=== PATIENT | female | born 1990 | race Two or more races ===

== ENCOUNTER 2019-12-14 18:44 | Emergency (ER) | payer MEDICAID ==
[~2019-12-14] VITALS: Ht 167.6 cm; Wt 68.0 kg
--- NOTE | 2019-12-14 18:55 | Emergency Room Report ---
History of Present Illness General Chief Complaint: Behavioral Complaint Source: Patient (Darwin Garcia MD) Present Illness HPI 29-year-old female history of bipolar disease, possible schizophrenia is hearing voices was found on the street with her friend wandering around, drink alcohol prior to coming patient states she is hearing voices no acute suicidal or homicidal ideations she states the voices are abusing her severity is severe , constant symptoms have been occurring for the past couple days patient presents for evaluation (Darwin Garcia MD) Allergies: Coded Allergies: UNABLE TO ASSESS (Unverified , 12/14/19) Patient History Past Medical History: see triage record Last Menstrual Period: Unknown Now: No - Unknown Reviewed Nursing Documentation: PMH: Agreed; PSxH: Agreed (Dariwn Garcia MD) Nursing Documentation-PMH Past Medical History: No Stated History (Darwin Garcia MD) Review of Systems All Other Systems: negative except mentioned in HPI (Darwin Garcia MD) Physical Exam Vital Signs Date Time Temp Pulse Resp B/P (MAP) Pulse Ox O2 Delivery O2 Flow Rate FiO2 12/14/19 18:36 130 25 113/79 (90) 99 Room Air Sp02 EP Interpretation: reviewed, normal General Appearance: alert, mild distress Head: normocephalic, atraumatic Eyes: bilateral eye PERRL, bilateral eye EOMI ENT: uvula midline, moist mucus membranes Neck: supple, thyroid normal, supple/symm/no masses Respiratory: lungs clear, no respiratory distress, no retraction, no accessory muscle use Cardiovascular #1: normal peripheral pulses, no edema, no gallop, no murmur, tachycardia Gastrointestinal: non tender, soft, no guarding, no rebound Musculoskeletal: normal inspection Neurologic: alert, oriented x3 Psychiatric: no suicidal/homicidal ideation, anxious Skin: no rash, warm/dry (Darwin Garcia MD) Medical Decision Making Diagnostic Impression: Primary Impression: Behavioral disorder ER Course 29-year-old female presents with hearing voices possible schizophrenia and bipolar disorder decompensated Patient is medically clear, for admission to psychiatric facility Laboratory Tests Test 12/14/19 19:22 12/14/19 20:05 White Blood Count 9.3 K/UL (4.8-10.8) Red Blood Count 4.73 M/UL (4.20-5.40) Hemoglobin 13.8 G/DL (12.0-16.0) Hematocrit 41.8 % (37.0-47.0) Mean Corpuscular Volume 88 FL (80-99) Mean Corpuscular Hemoglobin 29.2 PG (27.0-31.0) Mean Corpuscular Hemoglobin Concent 33.0 G/DL (32.0-36.0) Red Cell Distribution Width 12.3 % (11.6-14.8) Platelet Count 269 K/UL (150-450) Mean Platelet Volume 7.1 FL (6.5-10.1) Neutrophils (%) (Auto) 57.4 % (45.0-75.0) Lymphocytes (%) (Auto) 34.1 % (20.0-45.0) Monocytes (%) (Auto) 6.6 % (1.0-10.0) Eosinophils (%) (Auto) 0.2 % (0.0-3.0) Basophils (%) (Auto) 1.7 % (0.0-2.0) Sodium Level 147 MMOL/L (136-145) H Potassium Level 3.6 MMOL/L (3.5-5.1) Chloride Level 105 MMOL/L (98-107) Carbon Dioxide Level 25 MMOL/L (21-32) Anion Gap 17 mmol/L (5-15) H Blood Urea Nitrogen 6 mg/dL (7-18) L Creatinine 0.7 MG/DL (0.55-1.30) Estimate Glomerular Filtration Rate > 60 mL/min (>60) Glucose Level 86 MG/DL (74-106) Calcium Level 9.2 MG/DL (8.5-10.1) Total Bilirubin 1.0 MG/DL (0.2-1.0) Aspartate Amino Transferase (AST) 55 U/L (15-37) H Alanine Aminotransferase (ALT) 43 U/L (12-78) Alkaline Phosphatase 64 U/L (46-116) Total Protein 8.3 G/DL (6.4-8.2) H Albumin 4.3 G/DL (3.4-5.0) Globulin 4.0 g/dL Albumin/Globulin Ratio 1.1 (1.0-2.7) Salicylates Level < 0.2 ug/mL (2.8-20) L Acetaminophen Level < 2 MCG/ML (10-30) L Serum Alcohol 237 mg/dL Urine HCG, Qualitative Negative (NEGATIVE) Urine Opiates Screen Negative (NEGATIVE) Urine Barbiturates Screen Negative (NEGATIVE) Phencyclidine (PCP) Screen Negative (NEGATIVE) Urine Amphetamines Screen Negative (NEGATIVE) Urine Benzodiazepines Screen Negative (NEGATIVE) Urine Cocaine Screen Negative (NEGATIVE) Urine Marijuana (THC) Screen Negative (NEGATIVE) (Darwin Garcia MD) Laboratory Tests Test 12/14/19 19:22 12/14/19 20:05 12/15/19 00:30 12/15/19 02:50 White Blood Count 9.3 K/UL (4.8-10.8) Red Blood Count 4.73 M/UL (4.20-5.40) Hemoglobin 13.8 G/DL (12.0-16.0) Hematocrit 41.8 % (37.0-47.0) Mean Corpuscular Volume 88 FL (80-99) Mean Corpuscular Hemoglobin 29.2 PG (27.0-31.0) Mean Corpuscular Hemoglobin Concent 33.0 G/DL (32.0-36.0) Red Cell Distribution Width 12.3 % (11.6-14.8) Platelet Count 269 K/UL (150-450) Mean Platelet Volume 7.1 FL (6.5-10.1) Neutrophils (%) (Auto) 57.4 % (45.0-75.0) Lymphocytes (%) (Auto) 34.1 % (20.0-45.0) Monocytes (%) (Auto) 6.6 % (1.0-10.0) Eosinophils (%) (Auto) 0.2 % (0.0-3.0) Basophils (%) (Auto) 1.7 % (0.0-2.0) Sodium Level 147 MMOL/L (136-145) H Potassium Level 3.6 MMOL/L (3.5-5.1) Chloride Level 105 MMOL/L (98-107) Carbon Dioxide Level 25 MMOL/L (21-32) Anion Gap 17 mmol/L (5-15) H Blood Urea Nitrogen 6 mg/dL (7-18) L Creatinine 0.7 MG/DL (0.55-1.30) Estimate Glomerular Filtration Rate > 60 mL/min (>60) Glucose Level 86 MG/DL (74-106) Calcium Level 9.2 MG/DL (8.5-10.1) Total Bilirubin 1.0 MG/DL (0.2-1.0) Aspartate Amino Transferase (AST) 55 U/L (15-37) H Alanine Aminotransferase (ALT) 43 U/L (12-78) Alkaline Phosphatase 64 U/L (46-116) Total Protein 8.3 G/DL (6.4-8.2) H Albumin 4.3 G/DL (3.4-5.0) Globulin 4.0 g/dL Albumin/Globulin Ratio 1.1 (1.0-2.7) Salicylates Level < 0.2 ug/mL (2.8-20) L Acetaminophen Level < 2 MCG/ML (10-30) L Serum Alcohol 237 mg/dL 156 mg/dL 110 mg/dL Urine Color Pale yellow Urine Appearance Clear Urine pH 6 (4.5-8.0) Urine Specific [place] 1.015 (1.005-1.035) Urine Protein 2+ (NEGATIVE) H Urine Glucose (UA) Negative (NEGATIVE) Urine Ketones 3+ (NEGATIVE) H Urine Blood Negative (NEGATIVE) Urine Nitrite Negative (NEGATIVE) Urine Bilirubin Negative (NEGATIVE) Urine Urobilinogen Normal MG/DL (0.0-1.0) Urine Leukocyte Esterase Negative (NEGATIVE) Urine RBC 0-2 /HPF (0 - 2) Urine WBC 0-2 /HPF (0 - 2) Urine Squamous Epithelial Cells Few /LPF (NONE/OCC) Urine Bacteria Few /HPF (NONE) Urine HCG, Qualitative Negative (NEGATIVE) Urine Opiates Screen Negative (NEGATIVE) Urine Barbiturates Screen Negative (NEGATIVE) Phencyclidine (PCP) Screen Negative (NEGATIVE) Urine Amphetamines Screen Negative (NEGATIVE) Urine Benzodiazepines Screen Negative (NEGATIVE) Urine Cocaine Screen Negative (NEGATIVE) Urine Marijuana (THC) Screen Negative (NEGATIVE) (Elijah Ye MD) Last Vital Signs Date Time Temp Pulse Resp B/P (MAP) Pulse Ox O2 Delivery O2 Flow Rate FiO2 12/14/19 18:36 130 25 113/79 (90) 99 Room Air (Darwin Garcia MD) Reevaluation Time: 07:00 Reevaluation Impression Assumed care of the patient approximately 10 PM from previous provider Briefly, this is a 29-year-old Mexican-speaking female with history of bipolar disorder and possible schizophrenia presenting for auditory hallucinations. She has been sleeping comfortably all night. Alcohol level was elevated and is now downtrending. She is medically cleared for psychiatric evaluation. She is seeking voluntary psychiatric evaluation for auditory hallucinations. Denies SI /HI. Patient is medically cleared. Can be transferred to a psych facility once a bed is available. (Elijah Ye MD) Disposition: XFER TO PSYCH HOSP/UNIT Condition: Stable Referrals: [facility]. [facility] Patient Instructions: Alcohol Intoxication, [id number], Self-Destructive Behavior Additional Instructions: The patient was provided with discharge instructions, notified to follow-up with a primary care doctor and or specialist in the next 24-48 hours, and to return to the ED if they have worsening of their symptoms. Please note that this report is being documented using DRAGON technology. This can lead to erroneous entry secondary to incorrect interpretation by the dictating instrument. Darwin Garcia MD Dec 14, 2019 18:55 Elijah Ye MD Dec 15, 2019 07:20
[2019-12-14] MEDS ORDERED: DiphenhydrAMINE 50mg/ml Inj IM ONE (19:00)
[2019-12-14] MEDS ORDERED: LORazepam Inj 2mg/ml 1ml IM ONE (19:00)
[2019-12-14] MEDS ORDERED: Haloperidol 5mg/ml Inj IM ONE (19:00)
[2019-12-14 19:15] VITALS: BP 120/86
--- NOTE | 2019-12-14 19:15 | NUR ---
ED Nurse Note: Patient brought in by ambulance d/t behavioural complaint. Patient aao x 2 and ambulatory. Patient placed in gown and monitor. No acute distress noted at this time.
[2019-12-14 19:48] LABS: BASOPHILS % (AUTO) 1.7 % (0.0-2.0); EOSINOPHILS % (AUTO) 0.2 % (0.0-3.0); HEMATOCRIT 41.8 % (37.0-47.0); HEMOGLOBIN 13.8 G/DL (12.0-16.0); LYMPHOCYTES % (AUTO) 34.1 % (20.0-45.0); MEAN CORPUSCULAR VOLUME 88 FL (80-99); MONOCYTES % (AUTO) 6.6 % (1.0-10.0); NEUTROPHILS % (AUTO) 57.4 % (45.0-75.0); PLATELET COUNT 269 K/UL (150-450); RED BLOOD COUNT 4.73 M/UL (4.20-5.40); RED CELL DISTRIBUTION WIDTH 12.3 % (11.6-14.8); WHITE BLOOD COUNT 9.3 K/UL (4.8-10.8)
--- NOTE | 2019-12-14 19:55 | NUR ---
ED Nurse Note: Patient pulled out IV line on Left AC, new IV placed on right AC 20g, asymptomatic, intact, and patent.
[2019-12-14 19:58] LABS: ANION GAP 17 mmol/L (5-15); BLOOD UREA NITROGEN 6 mg/dL (7-18); CALCIUM 9.2 MG/DL (8.5-10.1); CARBON DIOXIDE 25 MMOL/L (21-32); CHLORIDE 105 MMOL/L (98-107); CREATININE 0.7 MG/DL (0.55-1.30); POTASSIUM 3.6 MMOL/L (3.5-5.1); SODIUM 147 MMOL/L (136-145)
[2019-12-14 20:11] LABS: ALANINE AMINOTRANSFERASE 43 U/L (12-78); ALBUMIN 4.3 G/DL (3.4-5.0); ALBUMIN/GLOBULIN RATIO 1.1 (1.0-2.7); ALKALINE PHOSPHATASE 64 U/L (46-116); ASPARTATE AMINO TRANSFERASE 55 U/L (15-37)
--- NOTE | 2019-12-14 20:11 | NUR ---
ED Nurse Note: Urine collected, sent to lab.
--- NOTE | 2019-12-14 21:17 | NUR ---
ED Nurse Note: Reassessed patient, patient sleeping in bed, no acute distress noted.
[2019-12-14 21:39] LABS: APPEARANCE,URINE CLEAR; BILIRUBIN, URINE NEGATIVE (NEGATIVE); COLOR,URINE PALE YELLOW; GLUCOSE, URINE (UA) NEGATIVE (NEGATIVE); KETONES,URINE 3+ (NEGATIVE); LEUKOCYTE ESTERASE ,URINE NEGATIVE (NEGATIVE); NITRITE,URINE NEGATIVE (NEGATIVE); PH,URINE 6 (4.5-8.0); PROTEIN,URINE 2+ (NEGATIVE); UROBILINOGEN,URINE NORMAL MG/DL (0.0-1.0)
[2019-12-14 22:40] VITALS: BP 117/65
[2019-12-15 00:49] VITALS: BP 120/72
--- NOTE | 2019-12-15 02:50 | NUR ---
ED Nurse Note: Alcohol serum blood redraw collected and sent to lab.
[2019-12-15 03:51] VITALS: BP 118/75
--- NOTE | 2019-12-15 04:51 | NUR ---
ED Nurse Note: Reassessed patient, patient awake and stable, no acute distress noted.
[2019-12-15 07:05] VITALS: BP 122/76
--- NOTE | 2019-12-15 07:20 | NUR ---
HAND-OFF: Report given to JER Leon.
--- NOTE | 2019-12-15 07:28 | NUR ---
ED Nurse Note: BELONGINGS PLACED IN PSYCH LOCKER #2. PT CONSTANTLY WALKS AROUND OUTSIDE HER ROOM. RN INSTRUCTED PT TO GO BACK TO HER BED. WATER PROVIDED TO PT.
[2019-12-15] MEDS ORDERED: ZyPREXA Zydis 5mg tab ORAL ONE (07:30)
[2019-12-15 09:10] VITALS: BP 132/70
--- NOTE | 2019-12-15 09:15 | NUR ---
ED Nurse Note: PT IS SLEEPING ON GURNEY WITH NO DISTRESS.
[2019-12-15 12:58] VITALS: BP 127/67
--- NOTE | 2019-12-15 13:18 | NUR ---
Pt has been sleeping, now awake and ambulating to . Pt was informed in Danish that she is transferring to [facility] [place] for her psych care. Awaiting transportation.
[2019-12-15 13:35] VITALS: BP 123/76
--- NOTE | 2019-12-15 13:35 | NUR ---
ED Nurse Note: pt transferred to [facility] in stable condition. All belongings sent with pt. ID band/IV removed. Pt is AAO x4 and ambulates with steadygait.
== END 2019-12-15 13:35 ==
LOC: EDBD 18:44 → EMR 20:48
DX: F91.9 Conduct disorder, unspecified (principal); F31.9 Bipolar disorder, unspecified
CPT/HCPCS: 36415; 80053; 80307; 81003; 81025; 85025; 96360; 96372; G0480; G0481; J1200; J1630; J7030; Z7502; 99285